=== PATIENT | female | born 2005 | race Caucasian/White ===

== ENCOUNTER → 2023-02-04 17:09 | Emergency (ER) | payer BC, SELFPAY ==
--- NOTE | ~2023-02-04 | XR_ITS ---
EXAMINATION: XR chest 2V Exam Date/Time: 02/04/2023 17:35 CDT HISTORY: LT SIDED CP SINCE LAST NIGHT Comparison: None available. RESULT: Lines, tubes, and devices: None. Lungs and pleura: Clear. Cardiomediastinal silhouette: Normal. Other: No acute osseous or upper abdominal finding. IMPRESSION: No acute cardiopulmonary process. Reviewed, dictated and finalized at location K.
--- NOTE | 2023-02-04 17:12 | ECG_ITS ---
Measurements Intervals Early Rate: 84 P: 45 WI: 148 QRS: 75 QRSD: 76 T: 50 QT: 324 QTc: 385 Interpretive Statements SINUS RHYTHM BORDERLINE R WAVE PROGRESSION, ANTERIOR LEADS BORDERLINE ECG NO PREVIOUS ECG AVAILABLE FOR COMPARISON Electronically Signed On 02-04-2023 20:43:26 CDT by Jareth Villarreal D.O.
[2023-02-04 17:22] VITALS: BP 152/92; PULSE 94; RESP 18; TEMP 36.9; O2SAT 98
[2023-02-04 17:45] LABS: Basophils Percent Auto 0.2 % (0.2-1.2); Eosinophils Percent Auto 0.3 % (0-4.4); Hematocrit 42.5 % (37.0-47.0); Immature Granulocyte Absolute 0.03 K/mm3 (0.00-0.031); Immature Granulocyte Percent A 0.3 % (0-0.5); Lymphocytes Absolute Auto 2.97 K/mm3 (0.9-3.2); Lymphocytes Percent Auto 32.9 % (18.3-44.2); Mean Corpuscular HGB Conc 35.3 g/dl (32-36); Mean Corpuscular Hemoglobin 29.6 pg (26-34); Mean Platelet Volume 9.3 fl (7.4-10.4); Monocytes Absolute Auto 0.7 K/mm3 (0.1-0.6); Monocytes Percent Auto 7.7 % (2.6-8.5); Neutrophils Absolute Auto 5.3 K/mm3 (1.3-6.7); Neutrophils Percent Auto 58.6 % (45.5-73.1); Platelet Count Result 374 k/mm3 (150-375); Red Blood Count 5.06 M/mm3 (4.2-5.4); Red Cell Distribution Width 11.5 % (11.5-14.5)
[2023-02-04 17:49] LABS: Partial Thromboplastin Time 30.6 SECONDS (22.3-36.8)
[2023-02-04 17:50] LABS: Alanine Aminotransferase 19 U/L (6-35); Albumin Level 4.8 g/dL (3.7-5.6); Alkaline Phosphatase 96 U/L (45-116); Anion Gap 10 mmol/L (8-16); Aspartate Amino Transferase 21 U/L (14-36); Bilirubin,Total 0.6 mg/dL (0.2-1.3); Blood Urea Nitrogen 12 mg/dL (8-21); Calcium 9.8 mg/dL (8.9-10.7); Carbon Dioxide 24 mmol/L (22-30); Chloride 104 mmol/L (98-107); Estimated CRCL calculation 125 ml/min; Estimated Glomerular Filt Rate > 60; Glucose 88 mg/dL (65-110); Lipase 119 U/L (23-300); Potassium 4.2 mmol/L (3.4-5.0); Sodium 138 mmol/L (134-143)
[2023-02-04 18:02] LABS: Troponin I < 0.012 ng/mL (0.000-0.034)
[2023-02-04] MEDS: IBUPROFEN 400 MG TABLET 800 MG PO (22:35)
[2023-02-04] MEDS: ACETAMINOPHEN 500 MG TABLET 1000 MG PO (22:35)
[2023-02-04 22:38] VITALS: PULSE 77; RESP 17; O2SAT 100
[2023-02-04 22:39] VITALS: BP 130/97; PULSE 87; RESP 19; O2SAT 100
[2023-02-04 22:45] VITALS: PULSE 76; RESP 17; O2SAT 100
[2023-02-04 22:46] VITALS: BP 131/83; PULSE 79; RESP 17; O2SAT 100
[2023-02-04 22:53] VITALS: PULSE 78
--- NOTE | 2023-02-04 23:26 | ED.GENADULT ---
HPI - General Adult General Chief complaint: Chest Pain Stated complaint: Left sided CP Time Seen by Provider: 02/04/23 21:40 History of Present Illness HPI narrative: 17 year old female presenting to the ED w/ chest pain. patient said the pain started at 2:00 a.m. yesterday while she was watching TV. She twisted to turn on the light and then started to have left-sided stabbing pain. It is just left of this inferior portion the sternum. It is 4/10 in intensity. It was sudden in onset and and constant. It feels similar to when she has had pleurisy in the past. It is worse with positioning and deep breaths. It is better with pressure. Patient did have a URI last week. She has a history of pleurisy in the past. She denies shortness of breath, lower extremity edema, nausea vomiting or diarrhea. She has no fever or chills. No recent trauma surgeries or immobilization. No history of DVT/PE. Related Data Allergies Allergy/AdvReac Type Severity Reaction Status Date / Time No Known Allergies Allergy Verified 02/04/23 17:23 [facility] Past Medical History Medical History Healthy adolescent Social History Social History (Updated 02/04/23 @ 23:37 by Danny Henley MD) Social History: Ex alcohol occasionally, denies tobacco or drug use Exam Narrative: APPEARANCE: No apparent distress. patient is polite and pleasant during the interview. Head: atraumatic. EYES: EOMI, NOSE: Atraumatic NECK: Trachea midline RESPIRATORY: No increased rate of breathing , clear to auscultation bilateral CARDIOVASCULAR: RRR, no peripheral edema ABDOMINAL: Non-distended soft nontender no guarding or rebound MUSCULOSKELETAl: no tenderness to palpation over the chest wall site, no overlying skin changes NEURO: Alert. Moving 4/4 extremities SKIN:: Warm, dry. Normal color PSYCHIATRIC: Normal affect Course Vital Signs Vital signs: Vital Signs Temperature 98.5 F 02/04/23 17:22 Pulse Rate 94 02/04/23 17:22 Respiratory Rate 18 02/04/23 17:22 Blood Pressure 152/92 H 02/04/23 17:22 Pulse Oximetry 98 02/04/23 17:22 Temperature 98.5 F 02/04/23 17:22 Pulse Rate 78 03/20/23 22:53 Respiratory Rate 17 02/04/23 22:46 Blood Pressure 131/83 02/04/23 22:46 Pulse Oximetry 100 02/04/23 22:46 Medical Decision Making MDM Narrative Medical decision making narrative: -Presentation: 17-year-old female presenting with sharp pain in the center of her chest that was precipitated by movement and. She had a URI week ago and a history of pleurisy. 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 Lives with her mother -External Chart Review: none -Hx from independent Sources: mother -Discussion of Management/Consultants: none -Independent interpretation of studies: CBC was within normal limits. Metabolic panel is within normal limits. Troponins were negative x2. Chest x-ray showed no acute cardiopulmonary process. Independent EKG interpretation: Rhythm [sinus], Rate [84], [place] -[normal], AR -[normal], QRS [narrow], QTC [normal], T waves -[negative for concerning inversions], ST Segments - [Negative for concerning elevations] Final interpretations: Normal Sinus Rhythm. no evidence of right heart strain. Wells criteria for pulmonary embolism - 0 Dx tests considered but not ordered: -Procedures: -Interventions: Motrin, Tylenol -Shared decision making / Disposition: upon re-evaluation the patient's pain is improved. she was monitored for several hours and has been doing well. Her and her mother are ready to go home. Her vital signs are stable, PE was considered but she has no risk factors, no tachycardia and no shortness of breath. Patient's pain is more likely pleurisy from
== END | disposition home or self-care (01) ==
PROVIDERS: Emergency Medicine; Emergency Provider Emergency Medicine
DX: R09.1 Pleurisy (principal)
CPT/HCPCS: 36415; 71046; 80053; 83690; 84484; 85025; 85610; 85730; 93005; 99283; A9270